=== PATIENT | male | born 1970 | race Caucasian/White ===

== ENCOUNTER 2016-07-09 08:51 | Emergency (ER) | payer SELFPAY ==
--- NOTE | 2016-07-09 09:30 | ER Document Report ---
ED General - General Time seen by provider: 09:25 Mode of Arrival: Ambulatory Information source: Patient TRAVEL OUTSIDE OF THE [place] IN LAST 30 DAYS: No - HPI Onset: Just prior to arrival - see HPI note Onset/Duration: Sudden - General Chief Complaint: Groin Pain Stated Complaint: GROIN PAIN Notes: Patient is a 46-year-old male presenting to the emergency department with complaints of groin pain. Patient states he was helping a friend move and he did the "splits" with his legs. Patient complains of pain to his right groin. Patient states this occurred approximately 1 hour prior to arrival to the emergency department. Patient states he took some Motrin has not had any relief. According to [place] substance controlled database the patient has failed 3 narcotic prescriptions in the past week. This is the patient's fourth visit to the emergency department over the past 7 days. Patient states he has no previous medical history or is taking any medications. Patient has a surgical history of an appendectomy. 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 (GULSHAN SINGLETON) - Related Data Allergies/Adverse Reactions: Penicillins Allergy (Verified 07/09/16 09:04) propoxyphene napsylate [From Darvocet-N 100] Allergy (Verified 07/09/16 09:04) Past Medical History - General Information source: Patient - Social History Smoking Status: Current Every Day Smoker Cigarette use (# per day): Yes - 1 ppd Chew tobacco use (# tins/day): No Frequency of alcohol use: None Drug Abuse: None Family History: Reviewed & Not Pertinent, COPD, Hyperlipidemia, Malignancy Patient has suicidal ideation: No Patient has homicidal ideation: No - Medical History Medical History: Negative Past Surgical History: Reports: Hx Appendectomy - Immunizations Immunizations up to date: Yes Hx Diphtheria, Pertussis, Tetanus Vaccination: Yes - 2010 Review of Systems - Review of Systems Constitutional: No symptoms reported EENT: No symptoms reported Cardiovascular: No symptoms reported Respiratory: No symptoms reported Gastrointestinal: No symptoms reported Genitourinary: No symptoms reported Male Genitourinary: No symptoms reported Musculoskeletal: See HPI Skin: No symptoms reported Hematologic/Lymphatic: No symptoms reported Neurological/Psychological: No symptoms reported -: Yes All other systems reviewed and negative Physical Exam - Vital signs Interpretation: Normal - General General appearance: Appears well, Alert In distress: None - HEENT Head: Normocephalic, Atraumatic Eyes: Normal Pupils: PERRL Mucous membranes: Moist - Respiratory Respiratory status: No respiratory distress - Abdominal Inspection: Normal Distension: No distension - Back Back: Normal, Nontender - Extremities General upper extremity: Normal inspection, Nontender, Normal ROM, Normal strength General lower extremity: Normal inspection, Nontender, Normal color, Normal ROM , Normal strength, Normal temperature - Neurological Neuro grossly intact: Yes Cognition: Normal Orientation: AAOx4 Ernesto Coma Scale Eye Opening: Spontaneous [place] Coma Scale Verbal: Oriented [place] Coma Scale Motor: Obeys Commands Ernesto Coma Scale Total: 15 Speech: Normal - Psychological Associated symptoms: Normal affect, Normal mood - Skin Skin Temperature: Warm Skin Moisture: Dry - Vital signs Vitals: Temp Pulse Resp BP Pulse Ox 97.5 F 80 20 118/87 H 98 07/09/16 08:58 07/09/16 08:58 07/09/16 08:58 07/09/16 08:58 07/09/16 08:58 (NAYELI KUHN) (GULSHAN SINGLETON) Discharge - Discharge Clinical Impression: Strain of muscle of right groin region Condition: Stable Disposition: HOME, SELF-CARE Additional Instructions: Inguinal Strain: You have an inguinal strain, also known as a pulled groin. This injury causes pain where the lower abdominal wall meets the upper leg. The strain can affect several different muscles and tendons. When it occurs during running, the injury usually affects the tendon or upper muscle fibers of the thigh muscles. With weight lifting, it's the lower fibers of the abdominal wall muscles that are most often strained. Running, lifting, squatting, or even walking can cause pain. A strain can take a few weeks to heal. Apply ice packs during the first couple of days following the injury. Antiinflammatory pain medication can help. Avoid lifting, running, jumping, and other activities that provoke pain. No hernia was found. But sometimes a hernia can begin with the same symptoms as a strain of the groin. If you find a lump or bulge in the groin, pain or swelling in the testicle, abdominal cramping, or vomiting, you should return for re-examination. USE ICE-PACKS TODAY. START MOIST HEAT TOMORROW. REST. LIMIT WALKING. TAKE MOTRIN 600mg EVERY EIGHT HOURS. FOLLOW UP WITH A LOCAL MEDICAL DOCTOR IF NOT IMPROVING. Scribe Attestation: 07/09/16 09:34 I personally performed the services described in the documentation, reviewed and edited the documentation which was dictated to the scribe in my presence, and it accurately records my words and actions. (NAYELI KUHN) Scribe Documentation - Scribe Written by Eran:: Gulshan Singleton 07/09/16 09:40 acting as scribe for :: Esme
[2016-07-09 09:40] VITALS: BP 107/73
== END 2016-07-09 09:50 | disposition home or self-care (01) ==
LOC: ER 08:51
DX: S39.011A Strain of muscle, fascia and tendon of abdomen, initial encounter (principal); R10.30 Lower abdominal pain, unspecified; F17.210 Nicotine dependence, cigarettes, uncomplicated; X50.0XXA Overexertion from strenuous movement or load, initial encounter; Z88.0 Allergy status to penicillin
CPT/HCPCS: 99283

== ENCOUNTER 2016-09-20 12:16 | Emergency (ER) | payer SELFPAY ==
--- NOTE | 2016-09-20 12:54 | ER Document Report ---
HPI - HPI Patient complains to provider of: neck pain Onset: Just prior to arrival Onset/Duration: Sudden Quality of pain: Achy Severity: Moderate Pain Level: 3 Context: Patient presents emergency department with complaints of neck pain. He reports he was working on a deck when a hard piece wood fell and hit him in the back of the neck. Patient has some soft swelling to C6 -T1 area and he reports that is new. No ecchymosis, no open wounds. He denies change in LOC. No other complaints such as fever nausea vomiting diarrhea. 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 IN LAST 30 DAYS: No - HEENT HEENT: Atraumatic, Normocephalic - NECK Neck: Supple, Other - soft tissue swelling to back of neck 36-t1 area, appears to be a fatty cyst, no erythema,no warmth, no pustule. negative: Lymphadenopathy-Left, Lymphadenopathy-Right - RESPIRATORY Respiratory: Breath Sounds Normal, No Respiratory Distress O2 Sat by Pulse Oximetry: 100 - CARDIOVASCULAR Cardiovascular: Regular Rate - MUSCULOSKELETAL/EXTREMETIES Musculoskeletal/Extremeties: ALEX BLACKWELL - NEURO Level of Consciousness: Awake, Alert, Appropriate - DERM Integumentary: Warm, Dry Adult Front & Back Diagram: 1 - soft tissue swelling Course - Re-evaluation Re-evalutation: 09/20/16 12:54 Patient denies past medical history of chronic pain but review of the [place] controlled substance reporting system notes patient is receiving some type of narcotic once to twice a month from different providers. 09/20/16 Patient instructed on cyst, patient instructed to monitor for signs and symptoms of infection. He verbalized understanding to all instructions. Patient was instructed to take ibuprofen for the pain. - Vital Signs Vital signs: Temp Pulse Resp BP Pulse Ox 98.8 F 73 20 132/78 H 100 09/20/16 12:27 09/20/16 12:27 09/20/16 12:27 09/20/16 12:27 09/20/16 12:27 - Diagnostic Test Radiology reviewed: Image reviewed, Reports reviewed - Diagnostic report text EXAM DESCRIPTION: CERV SP 3 VIEW OR LESS COMPLETED DATE/TIME: 09/20/2016 1: 01 pm REASON FOR STUDY: board fell on back of neck COMPARISON: None. NUMBER OF VIEWS: Three views. TECHNIQUE: AP, lateral and odontoid radiographic images acquired of the cervical spine. LIMITATIONS: None. FINDINGS: MINERALIZATION: Normal. ALIGNMENT: Anatomic. VERTEBRAE: Vertebral bodies of normal height. DISCS: No significant disc space narrowing. No large osteophytes. HARDWARE: None in the spine. SOFT TISSUES: Soft tissue swelling over the lower posterior neck at about the level of the C7 and T1 spinous processes. No underlying bony fracture. OTHER: No other significant finding. TECHNICAL DOCUMENTATION: JOB ID: [id number] [employer]- All Rights Reserved RAD/CERV SP 3 VIEW OR LESS IMPRESSION: No acute fracture Discharge - Discharge Clinical Impression: Neck pain, Elevated blood pressure reading Condition: Stable Disposition: HOME, SELF-CARE Instructions: Ice Packs ([facility]) Additional Instructions: *You have been evaluated for neck pain *Place ice packs to the area *Monitor the area for signs of infection such as redness, increased swelling, warmth, discharge *Take Ibuprofen as indicated for pain *Follow up with a primary care provider for recheck within one week *Return to ED for worsening condition, changes, needs Monitor your blood pressure. Your blood pressure was elevated today. This may be because you were anxious, in pain or because you need medication. It is important to follow up with your primary care provider for full evaluation. Forms: Elevated Blood Pressure
[2016-09-20 13:55] VITALS: BP 114/78
== END 2016-09-20 13:55 | disposition home or self-care (01) ==
LOC: ER 12:16
DX: M54.2 Cervicalgia (principal); F17.210 Nicotine dependence, cigarettes, uncomplicated; R03.0 Elevated blood-pressure reading, without diagnosis of hypertension
CPT/HCPCS: 72040; 99283